=== PATIENT | female | born 1955 | race Caucasian/White ===

== ENCOUNTER 2018-05-25 16:52 | Observation (INO) ==
[2018-05-25] MEDS ORDERED: *HR* FentaNYL (PF) 100 MCG/2 ML VIAL IVP ONE (17:47)
[2018-05-25] MEDS ORDERED: Isovue-370 500 ML INFUS..BTL IV ONE (17:47)
[2018-05-25] MEDS ORDERED: Ondansetron 4 MG/2 ML VIAL IVP ONE (17:47)
[2018-05-25] MEDS ORDERED: 0.9 % Sodium Chloride 1,000 ML IVC ONE (17:47)
--- NOTE | 2018-05-25 17:51 | Emergency Department Note ---
Disposition Clinical Impression: Abdominal wall cellulitis, Seroma after procedure Abdominal pain Qualifiers: Abdominal location: unspecified location Qualified Code(s): R10.9 - Unspecified abdominal pain Disposition: Admitted As Inpatient Condition: Good Referrals: Zeinab Mcgee [Primary Care Provider] - Forms: ED Satisfaction Letter, Work/School Release Time of Disposition: 20:14 Abdominal Pain HPI - General Chief Complaint: ED Abdominal Pain Stated Complaint: "hernia sx 3wks ago-fever,abd pain" Time Seen by Provider: 05/25/18 17:07 Source: patient Mode of arrival: ambulatory Limitations: no limitations Nursing Notes Reviewed: Yes Vital Signs Reviewed: Yes - History of Present Illness HPI Narrative: 62-year-old female presents emergency department with abdominal pain. 15 days ago she had an incisional hernia repaired with mesh performed by surgery here Dr. Renae. Since then she reports a lump in the hernia site with increased redness and sharp pain with discomfort. Denies radiation of the pain. Her other incisional sites appear well healing without any discharge. Today she had a temperature of 102.6. Reports normal appetite. She denies any cough, congestion, sick contacts or urinary symptoms. She is been taken a leave with minimal relief. She has been feeling nauseated but denies any vomiting. She reports normal bowel movement earlier today. She reports recently being evaluated by Dr. Renae and was told this is normal healing. Pt Subjective Complaint: abdominal pain Pain Scale: 10 - Related Data Home Medications Medication Instructions Recorded Confirmed Acetaminophen [Arthritis Pain 650 mg PO DAILY PRN 11/22/17 05/10/18 Relief] Cyanocobalamin (Vitamin B-12) 1,000 mcg SL DAILY 11/22/17 05/10/18 [Vitamin B-12] Albuterol Sulfate [Ventolin Hfa] 90 mcg IH Q6HR PRN 05/10/18 05/10/18 Vitamin D3 PO DAILY 05/10/18 Previous Rx's Medication Instructions Recorded OxyCODONE/APAP 5/325 [Percocet 1 each PO Q6HR PRN 7 Days #20 05/10/18 5/325 MG] tablet Allergies Allergy/AdvReac Type Severity Reaction Status Date / Time No Known Allergies Allergy Verified 04/22/18 13:55 All systems ED: reviewed and negative except as stated. Review of Systems: As Per HPI Constitutional: Reports: fever, chills ENT ED: Denies: congestion Cardiovascular: Denies: chest pain Respiratory: Denies: cough, dyspnea Gastrointestinal: Reports: abdominal pain, nausea. Denies: vomiting, diarrhea, melena, hematochezia Genitourinary: Denies: urgency, dysuria Integumentary: Denies: rash, abrasion Abdominal Pain PMH - Past Medical History Medical history: Reports: arthritis, asthma, cancer, COPD, diabetes, hypertension, migraine Female Surgical History: Reports: herniorrhaphy Psychiatric history: Reports: no psych history - Social History Smoking status: Never smoker Alcohol use: Reports: none Drug use: Reports: none Physical Exam - General Limitations: no limitations General appearance: alert, in no apparent distress, obese - Head Head exam: atraumatic, normocephalic, normal inspection - Eye Eye exam: Present: normal appearance, PERRL, EOMI. Absent: scleral icterus - ENT ENT exam: normal exam, normal oropharynx, mucous membranes moist - Neck Neck exam: Present: normal inspection, full ROM, trachea midline - Chest Chest inspection: Present: normal inspection, symmetric chest wall rise - Respiratory Respiratory exam: Present: normal lung sounds bilaterally. Absent: respiratory distress, wheezes - Cardiovascular Cardiovascular exam: Present: regular rate, normal rhythm, normal heart sounds - Abdominal Exam Abdominal exam: Present: soft, tenderness, normal bowel sounds, hernia ( Epigastric region with surrounding erythema and warmth), other (Well healing incisional scars to the left abdomen from robotic surgery). Absent: distention , guarding, rebound, rigidity, pulsatile mass - Extremities Exam Extremities exam: Present: normal inspection, full ROM, normal capillary refill. Absent: tenderness, pedal edema - Back Exam Back exam: Present: normal inspection, full ROM. Absent: tenderness, CVA tenderness (R), CVA tenderness (L) - Neurological Exam Neurological exam: Present: alert, oriented X3 - Psychiatric Psychiatric exam: Present: normal affect, normal mood - Skin Skin exam: Present: warm, dry, intact, normal color. Absent: rash, cyanosis, diaphoresis Course Course Narrative: Patient presents post up pain with warm to the area and tenderness in the epigastric region she has a large roughly 3 cm circumscribed lump that is tender and cannot be reproduced. There is no bowel sounds over the mass. There is some surrounding erythema and induration. At this time concerning for incarcerated hernia as well as abscess formation. Will check labs including a lactate and obtain a CT with IV contrast. Medications for symptom control patient is in agreement with this plan. - Reevaluation(s) Reevaluation #1: Abdomen is otherwise benign but tender only in the isolated area. She has a leukocytosis of 19 with neutrophil he a. Lactate is 1.2. Urinalysis is not consistent with infection. She denies any respiratory complaints. Suspect likely the source of her fever today is from this abdominal wall source. CT scan shows to well circumscribed fluid collections with the superificial one with air and concern for abscess. Will consult with surgery. Will initiate antibiotic treatment Zosyn and Vanc - Consultations Consultation #1: Discuss the case and consultation with on-call surgeon Dr. Lane, states is not uncommon for seroma to form as well as collect air and typically will take longer time to resolve. He would not recommend any incision or drainage and agrees with observation admission and antibiotics. Time: 20:08 Vital Signs Temperature 97.5 F L 05/25/18 16:59 Pulse Rate 94 05/25/18 16:59 Respiratory Rate 16 05/25/18 16:59 Blood Pressure 129/80 05/25/18 16:59 O2 Sat by Pulse Oximetry 96 05/25/18 16:59 Temperature 97.5 F L 05/25/18 16:59 Pulse Rate 94 05/25/18 16:59 Respiratory Rate 16 05/25/18 16:59 Blood Pressure 129/80 05/25/18 16:59 O2 Sat by Pulse Oximetry 96 05/25/18 16:59 Oxygen Delivery Oxygen Delivery Room Air Abdominal Pain - MDM Narrative Medical decision making narrative: Patient was discussed with my attending physician who agrees with ED management and final disposition. They independently evaluated the patient. Please refer to their attestation to this encounter for additional information. This note was generated by [employer] voice recognition software and as a result grammatical or spelling errors may occur using this program. - Medical Records Medical records reviewed: Yes I reviewed the patient's medical records. - Lab Data Lab results reviewed: Yes I reviewed the patient's lab results. Result diagrams: 05/25/18 18:02 05/25/18 18:02 Lab Results 05/25/18 05/25/18 05/25/18 Range/Units 18:02 18:02 18:02 WBC 19.5 H (4.3-11.1) K/mcL RBC 3.72 L (3.82-4.97) M/mcL Hgb 11.6 (11.5-15.4) g/dL Hct 34.5 L (35.3-44.9) % MCV 92.7 (83.0-100.0) fL MCH 31.2 (28.0-33.3) pg MCHC 33.6 (31.6-35.5) g/dL RDW 13.8 (11.5-14.5) % Plt Count 537 H (140-400) K/mcL MPV 9.8 (9.4-12.4) fL Immature Gran % 0.5 (0-4) % Seg Neutrophils % 78.9 % Lymphocytes % 12.9 % Monocytes % 6.7 % Eosinophils % 0.6 % Basophils % 0.4 % Neutrophils # 15.4 H (1.6-8.9) K/mcL Lymphocytes # 2.5 (0.6-4.6) K/mcL Monocytes # 1.3 (0.0-1.3) K/mcL Eosinophils # 0.1 (0.0-0.6) K/mcL Basophils # 0.1 (0.0-0.2) K/mcL Sodium 137 (136-145) mEq/L Potassium 3.8 (3.5-5.1) mEq/L Chloride 100 (98-107) mEq/L Carbon Dioxide 31 H (23-29) mEq/L BUN 13 (8-23) mg/dL Creatinine 0.68 (0.60-1.20) mg/dL Est GFR ( Amer) > 60 (> 60) Est GFR (Non-Af Amer) > 60 (> 60) BUN/Creatinine Ratio 19 (6-26) Glucose 123 H (70-105) mg/dL Calculated Osmolality 285 (280-300) Lactic Acid 1.2 (0.5-2.2) mmol/L Calcium 9.4 (8.6-10.3) mg/dL Total Bilirubin 0.4 (0.3-1.0) mg/dL Direct Bilirubin 0.0 (0.0-0.2) mg/dL Indirect Bilirubin 0.4 (0.0-1.2) mg/dL AST 9 L (13-39) Units/L ALT 7 (7-52) Units/L Alkaline Phosphatase 73 (34-104) Units/L Serum Total Protein 7.4 (6.4-8.9) g/dL Albumin 3.8 (3.5-5.7) g/dL Globulin 3.6 H (2.4-3.5) g/dL Albumin/Globulin Ratio 1.1 (1.1-2.2) Lipase 21 (11-82) Units/L Urine Color (Yellow) Urine Clarity (Clear) Urine pH (5.0-8.0) pH Units Ur Specific [place] (1.010-1.025) Urine Protein (Neg-Trace) mg/dL Urine Glucose (UA) (Normal) mg/dL Urine Ketones (Negative) mg/dL Urine Blood (Negative) Urine Nitrite (Negative) Urine Bilirubin (Negative) Urine Urobilinogen (Normal) mg/dL Ur Leukocyte Esterase (Negative) Urine Microscopic RBC (0-3) per hpf Urine Microscopic WBC (0-3) per hpf Ur Squamous Epith Cells (None-Few) per lpf Urine Bacteria (None-Few) per hpf Hyaline Casts (None-Few) per lpf Ur Culture Indicated? (NO) 05/25/18 Range/Units 18:25 WBC (4.3-11.1) K/mcL RBC (3.82-4.97) M/mcL Hgb (11.5-15.4) g/dL Hct (35.3-44.9) % MCV (83.0-100.0) fL MCH (28.0-33.3) pg MCHC (31.6-35.5) g/dL RDW (11.5-14.5) % Plt Count (140-400) K/mcL MPV (9.4-12.4) fL Immature Gran % (0-4) % Seg Neutrophils % % Lymphocytes % % Monocytes % % Eosinophils % % Basophils % % Neutrophils # (1.6-8.9) K/mcL Lymphocytes # (0.6-4.6) K/mcL Monocytes # (0.0-1.3) K/mcL Eosinophils # (0.0-0.6) K/mcL Basophils # (0.0-0.2) K/mcL Sodium (136-145) mEq/L Potassium (3.5-5.1) mEq/L Chloride (98-107) mEq/L Carbon Dioxide (23-29) mEq/L BUN (8-23) mg/dL Creatinine (0.60-1.20) mg/dL Est GFR ( Amer) (> 60) Est GFR (Non-Af Amer) (> 60) BUN/Creatinine Ratio (6-26) Glucose (70-105) mg/dL Calculated Osmolality (280-300) Lactic Acid (0.5-2.2) mmol/L Calcium (8.6-10.3) mg/dL Total Bilirubin (0.3-1.0) mg/dL Direct Bilirubin (0.0-0.2) mg/dL Indirect Bilirubin (0.0-1.2) mg/dL AST (13-39) Units/L ALT (7-52) Units/L Alkaline Phosphatase (34-104) Units/L Serum Total Protein (6.4-8.9) g/dL Albumin (3.5-5.7) g/dL Globulin (2.4-3.5) g/dL Albumin/Globulin Ratio (1.1-2.2) Lipase (11-82) Units/L Urine Color Yellow (Yellow) Urine Clarity Clear (Clear) Urine pH 7.5 (5.0-8.0) pH Units Ur Specific [place] 1.019 (1.010-1.025) Urine Protein Negative (Neg-Trace) mg/dL Urine Glucose (UA) Normal (Normal) mg/dL Urine Ketones Negative (Negative) mg/dL Urine Blood Negative (Negative) Urine Nitrite Negative (Negative) Urine Bilirubin Negative (Negative) Urine Urobilinogen Normal (Normal) mg/dL Ur Leukocyte Esterase Small H (Negative) Urine Microscopic RBC 5-15 H (0-3) per hpf Urine Microscopic WBC 0-3 (0-3) per hpf Ur Squamous Epith Cells Many H (None-Few) per lpf Urine Bacteria None Seen (None-Few) per hpf Hyaline Casts None Seen (None-Few) per lpf Ur Culture Indicated? NO. A (NO) - Radiology Data Radiology results reviewed: Yes I reviewed the patient's radiology results. Abdomen/Pelvis CT 05/25/18 17:47 IMPRESSION: 1. Well-circumscribed intra-abdominal fluid collection along the superior midline which abuts the anterior abdominal wall measuring 4.4 x 8.2 x 7.2 cm. The collection extends to involve the left hepatic lobe. Findings highly suspicious for intra-abdominal abscess. Please note sterility of fluid is indeterminate on imaging. 2. Circumscribed fluid collection containing multiple locules of gas along the subcutaneous fat of the anterior abdominal wall just superficial to the intra-abdominal collection. There is surrounding subcutaneous stranding. Findings most suggestive of abscess with adjacent cellulitis. This collection measures 3.8 x 5.0 x 6.7 cm. 3. Postsurgical changes of ventral hernia repair. D/ / Calvin Smiley MD / Calvin Smiley MD Interpreting Provider: Calvin Smiley MD Attestation Statement - Attestation Attestation: I, Billy Kiran DO, examined this patient [id number] and my medical decision-making was reviewed with Dr. Vic Zacarias , Resident Physician. I agree with the documented findings, disposition and treatment plan as described except to the extent set forth below. Please see my progress notes for details.
[2018-05-25 18:17] LABS: Basophils # 0.1 K/mcL (0.0-0.2); Basophils % 0.4 %; Eosinophils # 0.1 K/mcL (0.0-0.6); Eosinophils % 0.6 %; Hematocrit 34.5 % (35.3-44.9); Hemoglobin 11.6 g/dL (11.5-15.4); Immature Granulocytes % 0.5 % (0-4); Lymphocytes # 2.5 K/mcL (0.6-4.6); Lymphocytes % 12.9 %; Mean Corpuscular HGB Conc 33.6 g/dL (31.6-35.5); Mean Corpuscular Hemoglobin 31.2 pg (28.0-33.3); Mean Corpuscular Volume 92.7 fL (83.0-100.0); Mean Platelet Volume 9.8 fL (9.4-12.4); Monocytes # 1.3 K/mcL (0.0-1.3); Monocytes % 6.7 %; Neutrophils # 15.4 K/mcL (1.6-8.9); Platelet Count 537 K/mcL (140-400); Red Blood Count 3.72 M/mcL (3.82-4.97); Red Cell Distribution Width 13.8 % (11.5-14.5); Segmented Neutrophils % 78.9 %
[2018-05-25 18:34] LABS: Alanine Aminotransferase 7 Units/L (7-52); Albumin 3.8 g/dL (3.5-5.7); Albumin/Globulin Ratio 1.1 (1.1-2.2); Alkaline Phosphatase 73 Units/L (34-104); Aspartate Amino Transferase 9 Units/L (13-39); BUN/Creatinine Ratio 19 (6-26); Bilirubin,Indirect 0.4 mg/dL (0.0-1.2); Bilirubin,Total 0.4 mg/dL (0.3-1.0); Blood Urea Nitrogen 13 mg/dL (8-23); Calcium 9.4 mg/dL (8.6-10.3); Carbon Dioxide 31 mEq/L (23-29); Chloride 100 mEq/L (98-107); Globulin 3.6 g/dL (2.4-3.5); Glucose 123 mg/dL (70-105); Lipase 21 Units/L (11-82); Osmolality,Calculated 285 (280-300); Potassium 3.8 mEq/L (3.5-5.1); Sodium 137 mEq/L (136-145); Total Protein 7.4 g/dL (6.4-8.9); eGFR For Non-African Americans > 60 (> 60)
[2018-05-25 18:41] LABS: Bilirubin,Urine Negative (Negative); Blood,Urine Negative (Negative); Clarity,Urine Clear (Clear); Color,Urine Yellow (Yellow); Glucose,Urine (UA) Normal (Normal); Ketones,Urine Negative (Negative); Leukocyte Esterase,Urine Small (Negative); Nitrite,Urine Negative (Negative); PH,Urine 7.5 pH Units (5.0-8.0); Protein,Urine Negative (Neg-Trace); Specific Gravity,Urine 1.019 (1.010-1.025); Urobilinogen,Urine Normal (Normal)
[2018-05-25 18:42] LABS: Bacteria,Urine None Seen per hpf (None-Few); Hyaline Casts,Urine None Seen per lpf (None-Few); Squamous Epithelial Cell,Urine Many per lpf (None-Few); WBC,Urine 0-3 per hpf (0-3)
--- NOTE | 2018-05-25 18:46 | Emergency Department Note ---
Disposition Clinical Impression: Abdominal wall cellulitis, Seroma after procedure Disposition: Admitted As Inpatient Condition: Good Referrals: Zeinab Mcgee [Primary Care Provider] - Forms: ED Satisfaction Letter, Work/School Release Time of Disposition: 20:09 General Adult HPI - General Chief complaint: ED Abdominal Pain Stated complaint: "hernia sx 3wks ago-fever,abd pain" Time Seen by Provider: 05/25/18 17:07 Source: patient Mode of arrival: ambulatory Limitations: no limitations - History of Present Illness Pain Scale: 10 - Related Data Home Medications Medication Instructions Recorded Confirmed Acetaminophen [Arthritis Pain 650 mg PO DAILY PRN 11/22/17 05/10/18 Relief] Cyanocobalamin (Vitamin B-12) 1,000 mcg SL DAILY 11/22/17 05/10/18 [Vitamin B-12] Albuterol Sulfate [Ventolin Hfa] 90 mcg IH Q6HR PRN 05/10/18 05/10/18 Vitamin D3 PO DAILY 05/10/18 Previous Rx's Medication Instructions Recorded OxyCODONE/APAP 5/325 [Percocet 1 each PO Q6HR PRN 7 Days #20 05/10/18 5/325 MG] tablet Allergies Allergy/AdvReac Type Severity Reaction Status Date / Time No Known Allergies Allergy Verified 04/22/18 13:55 Constitutional: Reports: fever, chills ENT ED: Denies: congestion Cardiovascular: Denies: chest pain Respiratory: Denies: cough, dyspnea Gastrointestinal: Reports: abdominal pain, nausea. Denies: vomiting, diarrhea, melena, hematochezia Genitourinary: Denies: urgency, dysuria Integumentary: Denies: rash, abrasion Past Medical History - Past Medical History Medical history: Reports: arthritis, asthma, cancer, COPD, diabetes, hypertension, migraine Surgical history: Reports: cholecystectomy, herniorrhaphy, bariatric surgery Psychiatric history: Reports: no psych history - Social History Smoking Status: Never smoker Smokeless Tobacco Status: No Alcohol use: Reports: none Drug use: Reports: none Physical Exam - General Limitations: no limitations General appearance: alert, in no apparent distress, obese Course Vital Signs Temperature 97.5 F L 05/25/18 16:59 Pulse Rate 94 05/25/18 16:59 Respiratory Rate 16 05/25/18 16:59 Blood Pressure 129/80 05/25/18 16:59 O2 Sat by Pulse Oximetry 96 05/25/18 16:59 Temperature 97.5 F L 05/25/18 16:59 Pulse Rate 94 05/25/18 16:59 Respiratory Rate 16 05/25/18 16:59 Blood Pressure 129/80 05/25/18 16:59 O2 Sat by Pulse Oximetry 96 05/25/18 16:59 Oxygen Delivery Oxygen Delivery Room Air Medical Decision Making - Lab Data Result diagrams: 05/25/18 18:02 05/25/18 18:02 Lab Results 05/25/18 05/25/18 05/25/18 Range/Units 18:02 18:02 18:02 WBC 19.5 H (4.3-11.1) K/mcL RBC 3.72 L (3.82-4.97) M/mcL Hgb 11.6 (11.5-15.4) g/dL Hct 34.5 L (35.3-44.9) % MCV 92.7 (83.0-100.0) fL MCH 31.2 (28.0-33.3) pg MCHC 33.6 (31.6-35.5) g/dL RDW 13.8 (11.5-14.5) % Plt Count 537 H (140-400) K/mcL MPV 9.8 (9.4-12.4) fL Immature Gran % 0.5 (0-4) % Seg Neutrophils % 78.9 % Lymphocytes % 12.9 % Monocytes % 6.7 % Eosinophils % 0.6 % Basophils % 0.4 % Neutrophils # 15.4 H (1.6-8.9) K/mcL Lymphocytes # 2.5 (0.6-4.6) K/mcL Monocytes # 1.3 (0.0-1.3) K/mcL Eosinophils # 0.1 (0.0-0.6) K/mcL Basophils # 0.1 (0.0-0.2) K/mcL Sodium 137 (136-145) mEq/L Potassium 3.8 (3.5-5.1) mEq/L Chloride 100 (98-107) mEq/L Carbon Dioxide 31 H (23-29) mEq/L BUN 13 (8-23) mg/dL Creatinine 0.68 (0.60-1.20) mg/dL Est GFR ( Amer) > 60 (> 60) Est GFR (Non-Af Amer) > 60 (> 60) BUN/Creatinine Ratio 19 (6-26) Glucose 123 H (70-105) mg/dL Calculated Osmolality 285 (280-300) Lactic Acid 1.2 (0.5-2.2) mmol/L Calcium 9.4 (8.6-10.3) mg/dL Total Bilirubin 0.4 (0.3-1.0) mg/dL Direct Bilirubin 0.0 (0.0-0.2) mg/dL Indirect Bilirubin 0.4 (0.0-1.2) mg/dL AST 9 L (13-39) Units/L ALT 7 (7-52) Units/L Alkaline Phosphatase 73 (34-104) Units/L Serum Total Protein 7.4 (6.4-8.9) g/dL Albumin 3.8 (3.5-5.7) g/dL Globulin 3.6 H (2.4-3.5) g/dL Albumin/Globulin Ratio 1.1 (1.1-2.2) Lipase 21 (11-82) Units/L Urine Color (Yellow) Urine Clarity (Clear) Urine pH (5.0-8.0) pH Units Ur Specific [place] (1.010-1.025) Urine Protein (Neg-Trace) mg/dL Urine Glucose (UA) (Normal) mg/dL Urine Ketones (Negative) mg/dL Urine Blood (Negative) Urine Nitrite (Negative) Urine Bilirubin (Negative) Urine Urobilinogen (Normal) mg/dL Ur Leukocyte Esterase (Negative) Urine Microscopic RBC (0-3) per hpf Urine Microscopic WBC (0-3) per hpf Ur Squamous Epith Cells (None-Few) per lpf Urine Bacteria (None-Few) per hpf Hyaline Casts (None-Few) per lpf Ur Culture Indicated? (NO) 05/25/18 Range/Units 18:25 WBC (4.3-11.1) K/mcL RBC (3.82-4.97) M/mcL Hgb (11.5-15.4) g/dL Hct (35.3-44.9) % MCV (83.0-100.0) fL MCH (28.0-33.3) pg MCHC (31.6-35.5) g/dL RDW (11.5-14.5) % Plt Count (140-400) K/mcL MPV (9.4-12.4) fL Immature Gran % (0-4) % Seg Neutrophils % % Lymphocytes % % Monocytes % % Eosinophils % % Basophils % % Neutrophils # (1.6-8.9) K/mcL Lymphocytes # (0.6-4.6) K/mcL Monocytes # (0.0-1.3) K/mcL Eosinophils # (0.0-0.6) K/mcL Basophils # (0.0-0.2) K/mcL Sodium (136-145) mEq/L Potassium (3.5-5.1) mEq/L Chloride (98-107) mEq/L Carbon Dioxide (23-29) mEq/L BUN (8-23) mg/dL Creatinine (0.60-1.20) mg/dL Est GFR ( Amer) (> 60) Est GFR (Non-Af Amer) (> 60) BUN/Creatinine Ratio (6-26) Glucose (70-105) mg/dL Calculated Osmolality (280-300) Lactic Acid (0.5-2.2) mmol/L Calcium (8.6-10.3) mg/dL Total Bilirubin (0.3-1.0) mg/dL Direct Bilirubin (0.0-0.2) mg/dL Indirect Bilirubin (0.0-1.2) mg/dL AST (13-39) Units/L ALT (7-52) Units/L Alkaline Phosphatase (34-104) Units/L Serum Total Protein (6.4-8.9) g/dL Albumin (3.5-5.7) g/dL Globulin (2.4-3.5) g/dL Albumin/Globulin Ratio (1.1-2.2) Lipase (11-82) Units/L Urine Color Yellow (Yellow) Urine Clarity Clear (Clear) Urine pH 7.5 (5.0-8.0) pH Units Ur Specific [place] 1.019 (1.010-1.025) Urine Protein Negative (Neg-Trace) mg/dL Urine Glucose (UA) Normal (Normal) mg/dL Urine Ketones Negative (Negative) mg/dL Urine Blood Negative (Negative) Urine Nitrite Negative (Negative) Urine Bilirubin Negative (Negative) Urine Urobilinogen Normal (Normal) mg/dL Ur Leukocyte Esterase Small H (Negative) Urine Microscopic RBC 5-15 H (0-3) per hpf Urine Microscopic WBC 0-3 (0-3) per hpf Ur Squamous Epith Cells Many H (None-Few) per lpf Urine Bacteria None Seen (None-Few) per hpf Hyaline Casts None Seen (None-Few) per lpf Ur Culture Indicated? NO. A (NO) Attestation Statement - Attestation Attestation: I, Billy Kiran DO, examined this patient [id number] and my medical decision-making was reviewed with Dr. Vic Zacarias , Resident Physician. I agree with the documented findings, disposition and treatment plan as described except to the extent set forth below. Please see my progress notes for details. 62-year-old female presents emergency room for evaluation of surgical hernia repair discomfort and pain. Patient had surgical repair by robotic procedure completed approximately 3 weeks ago. She has had a persistent swelling to the anterior aspect of the abdomen that is progressively got larger and has more redness and warmth to it at this time. Patient denies chest pain shortness of breath headache vision changes nausea vomiting or diarrhea. She has had fevers up to 102 at home. She has been making normal bowel movements and having normal phlebitis. She has no other complaints or issues at this time. Vital signs in triage were stable. Patient's blood pressure and temperature were normal. Patient is alert she is oriented she speaks in full sentences she is short of breath her lungs are clear heart is regular abdomen is soft but she does have what appears to be redness and distention of this midline surgical incision site. There does appear to be laxity. She does have significant tenderness with palpation of that area. Bowel sounds are present otherwise. There is no guarding rigidity or peritoneal-like symptoms on exam. Concern is noted for possible breakdown of the surgical incision site, loss of integrity of the mass, infected or inflammatory seroma causing the discomfort and issues. Pain medication fluids nausea medication will be given. CBC chemistry troponin as well as lipase and liver function testing and lactic acid along with blood cultures will be drawn at this time. CT with IV contrast to be completed. Urinalysis will be collected. Patient otherwise clinical stable despite the presenting issue as well as recent surgery the patient is concerning for infectious etiology. See detailed documentation of physical exam , medical intervention, medical decision-making and disposition in the resident physician's note. No critical care pad the patient's treatment course at this time 2000 Patient is an elevated white blood cell count as well as neutrophilia. Patient has what appears to be a large seroma that goes to the abdominal wall into the peritoneum at this time. The imaging does show stranding and inflammation around the seroma itself. Consultations placed onto the on-call surgeon Dr. Socrates manriquez. Review the imaging modality as well as the patient's fever and elevated white blood cell count were discussed. He recommended admission with Ancef being provided. Blood cultures regarding ordered. Patient does not meet SIRS criteria and does not have what appears to be sepsis. She will be treated here in the emergency room. She did not require fluid resuscitation. Patient otherwise clinically stable admission process will be completed the surgical team for observation and resolution symptoms.
[2018-05-25] MEDS ORDERED: Piperacillin/Tazobactam 3.375 GM in 0.9 % Sodium Chloride Mini Bag 100 ML IVPB ONE (19:37)
[2018-05-25] MEDS ORDERED: ceFAZolin 1,000 MG in Water for inj. (sterile) 20 ML 10 ML IVP ONE (20:06)
[2018-05-25] MEDS ORDERED: Ondansetron ODT 4 MG TAB.RAPDIS SL PRN (22:08)
[2018-05-25] MEDS ORDERED: Ondansetron 4 MG/2 ML VIAL IVP PRN (22:08)
[2018-05-25] MEDS: *HR* OxyCODONE/APAP 7.5/325 TABLET PO PRN (22:54)
[2018-05-25] MEDS: 0.9 % Sodium Chloride 1,000 ML IVC SCH (22:54)
[2018-05-26] MEDS: ceFAZolin 1,000 MG in Water for inj. (sterile) 20 ML 10 ML IVP SCH ×4 (00:10→23:48)
[2018-05-26 07:34] LABS: Basophils % 0.2 %; Eosinophils # 0.2 K/mcL (0.0-0.6); Eosinophils % 1.2 %; Hematocrit 31.9 % (35.3-44.9); Hemoglobin 10.4 g/dL (11.5-15.4); Immature Granulocytes % 0.5 % (0-4); Lymphocytes # 2.4 K/mcL (0.6-4.6); Lymphocytes % 14.6 %; Mean Corpuscular HGB Conc 32.6 g/dL (31.6-35.5); Mean Corpuscular Hemoglobin 30.7 pg (28.0-33.3); Mean Corpuscular Volume 94.1 fL (83.0-100.0); Mean Platelet Volume 9.7 fL (9.4-12.4); Monocytes # 1.1 K/mcL (0.0-1.3); Monocytes % 6.6 %; Neutrophils # 12.5 K/mcL (1.6-8.9); Platelet Count 476 K/mcL (140-400); Red Blood Count 3.39 M/mcL (3.82-4.97); Red Cell Distribution Width 13.8 % (11.5-14.5); Segmented Neutrophils % 76.9 %
[2018-05-26 07:51] LABS: BUN/Creatinine Ratio 18 (6-26); Blood Urea Nitrogen 11 mg/dL (8-23); Calcium 8.8 mg/dL (8.6-10.3); Carbon Dioxide 26 mEq/L (23-29); Chloride 105 mEq/L (98-107); Glucose 109 mg/dL (70-105); Osmolality,Calculated 286 (280-300); Sodium 138 mEq/L (136-145); eGFR For Non-African Americans > 60 (> 60)
[2018-05-26] MEDS: 0.9 % Sodium Chloride 1,000 ML IVC SCH ×2 (12:14→23:51)
--- NOTE | 2018-05-26 12:40 | General Surg History&Physical ---
<Jaskaran Shetty T - Last Filed: 05/27/18 08:17> Date of Encounter: 05/27/18 Time of Encounter: 09:00 Assessment and Plan (1) Abdominal wall cellulitis Current Visit: Yes Status: Acute There is no surgical indication at this time. Continue antibiotic regimen Continue monitoring white blood cell count with serial CMP History of Present Illness Chief complaint: Abdominal swelling HPI: Ms. Addison is a 62 year old female presented with swelling of abdomen accompanied with pain, redness, and warmth. She had a robotic hernia repair [address] Renae. She started noticing the swelling at her follow-up appointment with at the outpatient clinic however it was not as severe red or painful. She decided to go to the emergency room department yesterday at 2 PM because she spiked a fever of 102 degrees Fahrenheit and had a painful abdomen region 8 out of 10 in severity. The pain is worsened by movement. Patient reports that since being admitted yesterday the inflammation and size of the swelling has gone down. She reports that the pain is less than on pain medication, rated a 3 out of 10. She has had a full breakfast today and is tolerating full diet well. She does not complain of nausea or vomiting. She is passing gas and had a bowel movement yesterday morning. Her white blood cell count was elevated yesterday at 19 and today it is decreased at 16 on antibiotics. Past Med Surg Social Fam HX - Past Medical History Medical history: arthritis, asthma, cancer, COPD, diabetes, hypertension, migraine Additional medical history: sleep apnea, skin cancer Psychiatric history: no psych history - Past Surgical History Surgical History: cholecystectomy, herniorrhaphy, bariatric surgery Additional surgical history: tonsils,dental - Social History Smoking Status: Never smoker Smokeless Tobacco Status: No Alcohol use: none Drug use: none Medications and Allergies Acetaminophen [Tylenol] 650 mg PO DAILY PRN 05/26/18 [History] Albuterol Sulfate [Ventolin Hfa] 1 - 2 puff IH DAILY PRN 05/26/18 [History] L.acidoph,Paracasei, B.lactis [Probiotic] 1 cap PO DAILY 05/26/18 [History] Naproxen Sodium [Aleve] 220 mg PO DAILY PRN 05/26/18 [History] Vitamin B Complex [B Complex] 1 cap PO DAILY 05/26/18 [History] 3 Allergy/AdvReac Type Severity Reaction Status Date / Time No Known Allergies Allergy Verified 05/26/18 13:29 Review of Systems All systems PM: The remainder of the systems were reviewed and are negative - Constitutional as per HPI - Gastrointestinal as per HPI General Surgery Exam Initial Vital Signs Temp Pulse Resp BP Pulse Ox 97.5 F L 94 16 129/80 96 05/25/18 16:59 05/25/18 16:59 05/25/18 16:59 05/25/18 16:59 05/25/18 16:59 - General physical appearance well developed, well nourished, no distress - Respiratory normal expansion, normal respiratory effort - Cardiovascular Cardiovascular exam: Present: RRR - Abdomen Abdomen general surgery: Present: bowel sounds present, soft Abdominal Tenderness: Present: epigastic (at site of swelling. Redness also noted) - Incision Incision: Present: clean and dry, intact - Neurologic Present: CN 2-12 grossly intact - Psychiatric Psychiatric general surgery: Present: A&Ox3, appropriate, oriented to person, oriented to place, oriented to time, speech is normal, memory intact Results - Labs 05/27/18 07:11 05/27/18 07:11 Abnormal lab results WBC 16.3 K/mcL (4.3-11.1) H 05/26/18 07:12 RBC 3.39 M/mcL (3.82-4.97) L 05/26/18 07:12 Hgb 10.4 g/dL (11.5-15.4) L 05/26/18 07:12 Hct 31.9 % (35.3-44.9) L 05/26/18 07:12 Plt Count 476 K/mcL (140-400) H 05/26/18 07:12 Neutrophils # 12.5 K/mcL (1.6-8.9) H 05/26/18 07:12 Glucose 109 mg/dL (70-105) H 05/26/18 07:12 AST 9 Units/L (13-39) L 05/25/18 18:02 Globulin 3.6 g/dL (2.4-3.5) H 05/25/18 18:02 Ur Leukocyte Esterase Small (Negative) H 05/25/18 18:25 Urine Microscopic RBC 5-15 per hpf (0-3) H 05/25/18 18:25 Ur Squamous Epith Cells Many per lpf (None-Few) H 05/25/18 18:25 Ur Culture Indicated? NO. (NO) A 05/25/18 18:25 Diabetes panel 05/26/18 Range/Units 07:12 Sodium 138 (136-145) mEq/L Potassium 4.0 (3.5-5.1) mEq/L Chloride 105 (98-107) mEq/L Carbon Dioxide 26 (23-29) mEq/L BUN 11 (8-23) mg/dL Creatinine 0.61 (0.60-1.20) mg/dL Glucose 109 H (70-105) mg/dL Calcium 8.8 (8.6-10.3) mg/dL Calcium panel 05/26/18 Range/Units 07:12 Calcium 8.8 (8.6-10.3) mg/dL Pituitary panel 05/26/18 Range/Units 07:12 Sodium 138 (136-145) mEq/L Potassium 4.0 (3.5-5.1) mEq/L Chloride 105 (98-107) mEq/L Carbon Dioxide 26 (23-29) mEq/L BUN 11 (8-23) mg/dL Creatinine 0.61 (0.60-1.20) mg/dL Glucose 109 H (70-105) mg/dL Calcium 8.8 (8.6-10.3) mg/dL Adrenal panel 05/26/18 Range/Units 07:12 Sodium 138 (136-145) mEq/L Potassium 4.0 (3.5-5.1) mEq/L Chloride 105 (98-107) mEq/L Carbon Dioxide 26 (23-29) mEq/L BUN 11 (8-23) mg/dL Creatinine 0.61 (0.60-1.20) mg/dL Glucose 109 H (70-105) mg/dL Calcium 8.8 (8.6-10.3) mg/dL All other labs normal. <Griffin Lane - Last Filed: 05/27/18 14:31> Date of Encounter: 05/27/18 History of Present Illness HPI: Ms. Addison is a 62 year old female Review of Systems All systems PM: The remainder of the systems were reviewed and are negative General Surgery Exam Initial Vital Signs Temp Pulse Resp BP Pulse Ox 97.5 F L 94 16 129/80 96 07/21/18 16:59 05/25/18 16:59 05/25/18 16:59 05/25/18 16:59 05/25/18 16:59 Results - Labs 05/27/18 07:11 05/27/18 07:11 Abnormal lab results WBC 16.3 K/mcL (4.3-11.1) H 05/27/18 07:11 RBC 3.24 M/mcL (3.82-4.97) L 05/27/18 07:11 Hgb 9.7 g/dL (11.5-15.4) L 05/27/18 07:11 Hct 29.9 % (35.3-44.9) L 05/27/18 07:11 Plt Count 476 K/mcL (140-400) H 05/27/18 07:11 Neutrophils # 12.6 K/mcL (1.6-8.9) H 05/27/18 07:11 Sodium 132 mEq/L (136-145) L 05/27/18 07:11 Creatinine 0.52 mg/dL (0.60-1.20) L 05/27/18 07:11 Glucose 109 mg/dL (70-105) H 05/27/18 07:11 Calculated Osmolality 273 (280-300) L 05/27/18 07:11 AST 7 Units/L (13-39) L 05/27/18 07:11 ALT 4 Units/L (7-52) L 05/27/18 07:11 Serum Total Protein 6.2 g/dL (6.4-8.9) L 05/27/18 07:11 Albumin 3.1 g/dL (3.5-5.7) L 05/27/18 07:11 Albumin/Globulin Ratio 1.0 (1.1-2.2) L 05/27/18 07:11 Ur Leukocyte Esterase Small (Negative) H 05/25/18 18:25 Urine Microscopic RBC 5-15 per hpf (0-3) H 05/25/18 18:25 Ur Squamous Epith Cells Many per lpf (None-Few) H 05/25/18 18:25 Ur Culture Indicated? NO. (NO) A 05/25/18 18:25 Diabetes panel 05/27/18 Range/Units 07:11 Sodium 132 L (136-145) mEq/L Potassium 3.9 (3.5-5.1) mEq/L Chloride 105 (98-107) mEq/L Carbon Dioxide 26 (23-29) mEq/L BUN 8 (8-23) mg/dL Creatinine 0.52 L (0.60-1.20) mg/dL Glucose 109 H (70-105) mg/dL Calcium 8.6 (8.6-10.3) mg/dL AST 7 L (13-39) Units/L ALT 4 L (7-52) Units/L Alkaline Phosphatase 61 (34-104) Units/L Albumin 3.1 L (3.5-5.7) g/dL Calcium panel 05/27/18 Range/Units 07:11 Calcium 8.6 (8.6-10.3) mg/dL Albumin 3.1 L (3.5-5.7) g/dL Pituitary panel 05/27/18 Range/Units 07:11 Sodium 132 L (136-145) mEq/L Potassium 3.9 (3.5-5.1) mEq/L Chloride 105 (98-107) mEq/L Carbon Dioxide 26 (23-29) mEq/L BUN 8 (8-23) mg/dL Creatinine 0.52 L (0.60-1.20) mg/dL Glucose 109 H (70-105) mg/dL Calcium 8.6 (8.6-10.3) mg/dL Adrenal panel 05/27/18 Range/Units 07:11 Sodium 132 L (136-145) mEq/L Potassium 3.9 (3.5-5.1) mEq/L Chloride 105 (98-107) mEq/L Carbon Dioxide 26 (23-29) mEq/L BUN 8 (8-23) mg/dL Creatinine 0.52 L (0.60-1.20) mg/dL Glucose 109 H (70-105) mg/dL Calcium 8.6 (8.6-10.3) mg/dL Total Bilirubin 0.3 (0.3-1.0) mg/dL AST 7 L (13-39) Units/L ALT 4 L (7-52) Units/L Alkaline Phosphatase 61 (34-104) Units/L Albumin 3.1 L (3.5-5.7) g/dL All other labs normal. - Attending Attestation I examined this patient and my medical decision-making was reviewed with the Resident Physician. I agree with the documented findings, disposition and treatment plan as described except to the extent set forth below. The patient is seen and evaluated on morning rounds with the resident. She is feeling much better. Her white blood cell count is coming down. The area of erythema on the anterior abdominal wall is less. I am still not convinced that this represents infection. This may represent fluid under tension in the previous hernia sac. We will continue conservative measures and treatment with antibiotics. Griffin Lane MD FACS
[2018-05-26] MEDS: *HR* OxyCODONE/APAP 7.5/325 TABLET PO PRN (20:06)
[2018-05-27 07:43] LABS: Basophils # 0.1 K/mcL (0.0-0.2); Basophils % 0.4 %; Eosinophils # 0.3 K/mcL (0.0-0.6); Eosinophils % 1.7 %; Hematocrit 29.9 % (35.3-44.9); Hemoglobin 9.7 g/dL (11.5-15.4); Immature Granulocytes % 0.4 % (0-4); Lymphocytes # 2.1 K/mcL (0.6-4.6); Lymphocytes % 13.2 %; Mean Corpuscular HGB Conc 32.4 g/dL (31.6-35.5); Mean Corpuscular Hemoglobin 29.9 pg (28.0-33.3); Mean Corpuscular Volume 92.3 fL (83.0-100.0); Mean Platelet Volume 10.3 fL (9.4-12.4); Monocytes # 1.1 K/mcL (0.0-1.3); Monocytes % 6.6 %; Neutrophils # 12.6 K/mcL (1.6-8.9); Platelet Count 476 K/mcL (140-400); Red Blood Count 3.24 M/mcL (3.82-4.97); Red Cell Distribution Width 13.7 % (11.5-14.5); Segmented Neutrophils % 77.7 %
[2018-05-27 08:03] LABS: Alanine Aminotransferase 4 Units/L (7-52); Albumin 3.1 g/dL (3.5-5.7); Alkaline Phosphatase 61 Units/L (34-104); Aspartate Amino Transferase 7 Units/L (13-39); BUN/Creatinine Ratio 15 (6-26); Bilirubin,Total 0.3 mg/dL (0.3-1.0); Blood Urea Nitrogen 8 mg/dL (8-23); Calcium 8.6 mg/dL (8.6-10.3); Carbon Dioxide 26 mEq/L (23-29); Chloride 105 mEq/L (98-107); Globulin 3.1 g/dL (2.4-3.5); Glucose 109 mg/dL (70-105); Osmolality,Calculated 273 (280-300); Potassium 3.9 mEq/L (3.5-5.1); Sodium 132 mEq/L (136-145); Total Protein 6.2 g/dL (6.4-8.9); eGFR For Non-African Americans > 60 (> 60)
[2018-05-27] MEDS: ceFAZolin 1,000 MG in Water for inj. (sterile) 20 ML 10 ML IVP SCH ×2 (08:34→15:32)
--- NOTE | 2018-05-27 09:37 | General Surgery Progress Note ---
<Jaskaran Shetty - Last Filed: 05/27/18 09:55> Date of Encounter: 05/27/18 Time of Encounter: 09:34 - Assessment and Plan (1) Abdominal wall cellulitis Current Visit: Yes Status: Acute Ms. Addison is a 62 year old female presented with swelling of abdomen accompanied with pain, redness, and warmth. She had a robotic hernia repair [address] Renae. There is decreased swelling, redness, and pain. WBC count remains elevated at 16.3, the same as yesterday. We will continue current measures until her swelling and redness have completely subsided - Continue ABX regimen - Ancef - Continue Zofran PRN for nausea - continue pain meds - Oxy PRN - Continue IVF and regular diet - DVT ppx started - Heparin + anti-embolic stockings Subjective Patient reports: no new complaints, feels better, still having pain, pain is less, tolerating a regular diet, flatus, bowel movement Narrative: Ms. Addison is a 62 year old female presented with swelling of abdomen accompanied with pain, redness, and warmth. She had a robotic hernia repair [address] Renae. She reports that the swellilng and redness has decreased since admission. She denies abdominal distension, N/V, and fever. She is passing gas, having bowel movements, and tolerating a full diet. WBC count remains elevated at 16.3 this AM, unchanged from yesterday, but overall decreased from Sunday at 19.5. Objective Vital Signs - Last 8 Hours Temp Pulse Resp BP Pulse Ox 05/27/18 07:43 98.2 F 82 14 116/73 93 05/27/18 03:37 99.7 F H 90 18 119/73 93 Intake and Output 05/26/18 05/27/18 05/27/18 23:59 07:59 15:59 Intake Total 1020 / 1020 360 / 360 Output Total 1300 / 1300 Balance 1020 / 1020 -940 / -940 Intake: IV Fluids 1020 / 1020 10 10 0.9 % Sodium Chloride 1,000 ML 1000 / 1000 @ 75 mls/hr IVC .[id number] [facility] Rx #:[id number] Ancef 1,000 MG In Water for inj 20 / 20 . (sterile) 10 ML @ 200 mls/hr IVP Q8HR [facility] Rx#:[id number] Oral 0 / 0 360 / 360 Output: Urine 1300 / 1300 Other: Meal Dinner Percent of Meal Consumed 0% Weight 80 kg Patient Weight 05/27/18 23:59 Weight 80 kg - General physical appearance well developed, well nourished, no distress - Cardiovascular Cardiovascular exam: Present: RRR, no murmurs/rubs/gallops - Abdomen Abdomen: Present: bowel sounds present, soft, non tender Abdominal Tenderness: epigastic (mildly tender at site of swelling with decreasing redness. Size of swelling has decreased since admission.) - Neurologic CN 2-12 grossly intact - Psychiatric oriented to time, oriented to person, oriented to place, speech is normal, memory intact - Labs 05/27/18 07:11 05/27/18 07:11 Diabetes panel 05/27/18 Range/Units 07:11 Sodium 132 L (136-145) mEq/L Potassium 3.9 (3.5-5.1) mEq/L Chloride 105 (98-107) mEq/L Carbon Dioxide 26 (23-29) mEq/L BUN 8 (8-23) mg/dL Creatinine 0.52 L (0.60-1.20) mg/dL Glucose 109 H (70-105) mg/dL Calcium 8.6 (8.6-10.3) mg/dL AST 7 L (13-39) Units/L ALT 4 L (7-52) Units/L Alkaline Phosphatase 61 (34-104) Units/L Albumin 3.1 L (3.5-5.7) g/dL Calcium panel 05/27/18 Range/Units 07:11 Calcium 8.6 (8.6-10.3) mg/dL Albumin 3.1 L (3.5-5.7) g/dL Pituitary panel 05/27/18 Range/Units 07:11 Sodium 132 L (136-145) mEq/L Potassium 3.9 (3.5-5.1) mEq/L Chloride 105 (98-107) mEq/L Carbon Dioxide 26 (23-29) mEq/L BUN 8 (8-23) mg/dL Creatinine 0.52 L (0.60-1.20) mg/dL Glucose 109 H (70-105) mg/dL Calcium 8.6 (8.6-10.3) mg/dL Adrenal panel 05/27/18 Range/Units 07:11 Sodium 132 L (136-145) mEq/L Potassium 3.9 (3.5-5.1) mEq/L Chloride 105 (98-107) mEq/L Carbon Dioxide 26 (23-29) mEq/L BUN 8 (8-23) mg/dL Creatinine 0.52 L (0.60-1.20) mg/dL Glucose 109 H (70-105) mg/dL Calcium 8.6 (8.6-10.3) mg/dL Total Bilirubin 0.3 (0.3-1.0) mg/dL AST 7 L (13-39) Units/L ALT 4 L (7-52) Units/L Alkaline Phosphatase 61 (34-104) Units/L Albumin 3.1 L (3.5-5.7) g/dL Consult Discharge Plan - Plan Referrals: Zeinab Mcgee [Primary Care Provider] - <Griffin Lane - Last Filed: 05/27/18 15:36> Date of Encounter: 05/27/18 Objective Vital Signs - Last 8 Hours Temp Pulse Resp BP Pulse Ox 05/27/18 15:00 98.4 F 77 18 109/64 96 05/27/18 11:33 98.7 F 84 16 115/75 96 05/27/18 07:43 98.2 F 82 14 116/73 93 Intake and Output 05/26/18 05/27/18 05/27/18 23:59 07:59 15:59 Intake Total 1020 / 1020 360 / 360 1370 / 1370 Output Total 1300 / 1300 400 / 400 Balance 1020 / 1020 -940 / -940 970 / 970 Intake: IV Fluids 1020 / 1020 1010 / 1010 0.9 % Sodium Chloride 1,000 ML 1000 / 1000 1000 / 1000 @ 75 mls/hr IVC .[id number] [facility] Rx #:[id number] Ancef 1,000 MG In Water for inj . (sterile) 10 ML @ 200 mls/hr IVP Q8HR [facility] Rx#:[id number] Oral 0 / 0 360 / 360 360 / 360 Output: Urine 1300 / 1300 400 / 400 Other: Meal Dinner Lunch Percent of Meal Consumed 0% 0% Weight 80 kg Patient Weight 05/27/18 23:59 Weight 80 kg - Labs 05/27/18 07:11 05/27/18 07:11 Diabetes panel 05/27/18 Range/Units 07:11 Sodium 132 L (136-145) mEq/L Potassium 3.9 (3.5-5.1) mEq/L Chloride 105 (98-107) mEq/L Carbon Dioxide 26 (23-29) mEq/L BUN 8 (8-23) mg/dL Creatinine 0.52 L (0.60-1.20) mg/dL Glucose 109 H (70-105) mg/dL Calcium 8.6 (8.6-10.3) mg/dL AST 7 L (13-39) Units/L ALT 4 L (7-52) Units/L Alkaline Phosphatase 61 (34-104) Units/L Albumin 3.1 L (3.5-5.7) g/dL Calcium panel 05/27/18 Range/Units 07:11 Calcium 8.6 (8.6-10.3) mg/dL Albumin 3.1 L (3.5-5.7) g/dL Pituitary panel 05/27/18 Range/Units 07:11 Sodium 132 L (136-145) mEq/L Potassium 3.9 (3.5-5.1) mEq/L Chloride 105 (98-107) mEq/L Carbon Dioxide 26 (23-29) mEq/L BUN 8 (8-23) mg/dL Creatinine 0.52 L (0.60-1.20) mg/dL Glucose 109 H (70-105) mg/dL Calcium 8.6 (8.6-10.3) mg/dL Adrenal panel 05/27/18 Range/Units 07:11 Sodium 132 L (136-145) mEq/L Potassium 3.9 (3.5-5.1) mEq/L Chloride 105 (98-107) mEq/L Carbon Dioxide 26 (23-29) mEq/L BUN 8 (8-23) mg/dL Creatinine 0.52 L (0.60-1.20) mg/dL Glucose 109 H (70-105) mg/dL Calcium 8.6 (8.6-10.3) mg/dL Total Bilirubin 0.3 (0.3-1.0) mg/dL AST 7 L (13-39) Units/L ALT 4 L (7-52) Units/L Alkaline Phosphatase 61 (34-104) Units/L Albumin 3.1 L (3.5-5.7) g/dL - Attending Attestation I examined this patient and my medical decision-making was reviewed with the Resident Physician. I agree with the documented findings, disposition and treatment plan as described except to the extent set forth below. The patient is seen and evaluated with the resident on morning rounds. She has much less erythema and pain. It is unclear whether this represents infection or increased pressure in the fluid in the subcutaneous space. She continues to improve clinically. Continue antibiotics. Griffin Lane MD FACS
[2018-05-27] MEDS: *HR* OxyCODONE/APAP 7.5/325 TABLET PO PRN (12:07)
[2018-05-27] MEDS: 0.9 % Sodium Chloride 1,000 ML IVC SCH (13:39)
[2018-05-27] MEDS ORDERED: *HR* HYDROcodone/Acet 5/325 mg TABLET PO PRN (15:12)
[2018-05-27] MEDS: Pantoprazole 40 MG VIAL IVP SCH (17:59)
[2018-05-27] MEDS: Ibuprofen 600 MG TABLET PO PRN (19:33)
[2018-05-28] MEDS: ceFAZolin 1,000 MG in Water for inj. (sterile) 20 ML 10 ML IVP SCH ×3 (00:37→17:30)
[2018-05-28 07:32] LABS: Basophils # 0.1 K/mcL (0.0-0.2); Basophils % 0.4 %; Eosinophils # 0.4 K/mcL (0.0-0.6); Eosinophils % 2.3 %; Hematocrit 32.9 % (35.3-44.9); Hemoglobin 10.9 g/dL (11.5-15.4); Immature Granulocytes % 0.5 % (0-4); Lymphocytes # 1.8 K/mcL (0.6-4.6); Lymphocytes % 11.3 %; Mean Corpuscular HGB Conc 33.1 g/dL (31.6-35.5); Mean Corpuscular Hemoglobin 30.4 pg (28.0-33.3); Mean Corpuscular Volume 91.6 fL (83.0-100.0); Mean Platelet Volume 9.8 fL (9.4-12.4); Monocytes # 0.9 K/mcL (0.0-1.3); Monocytes % 5.9 %; Neutrophils # 12.6 K/mcL (1.6-8.9); Platelet Count 583 K/mcL (140-400); Red Blood Count 3.59 M/mcL (3.82-4.97); Red Cell Distribution Width 13.6 % (11.5-14.5); Segmented Neutrophils % 79.6 %
[2018-05-28] MEDS: Pantoprazole 40 MG VIAL IVP SCH (08:26)
[2018-05-28 08:46] LABS: BUN/Creatinine Ratio 17 (6-26); Blood Urea Nitrogen 8 mg/dL (8-23); Calcium 9.2 mg/dL (8.6-10.3); Carbon Dioxide 26 mEq/L (23-29); Chloride 103 mEq/L (98-107); Glucose 107 mg/dL (70-105); Osmolality,Calculated 285 (280-300); Sodium 138 mEq/L (136-145); eGFR For Non-African Americans > 60 (> 60)
[2018-05-28 09:00] LABS: INR 1.3; Prothrombin Time 14.6 Seconds (9.4-12.1)
[2018-05-28] MEDS: *HR* Heparin 5,000 UNIT/ML VIAL SQ SCH ×2 (09:37→19:50)
[2018-05-28] MEDS ORDERED: *HR* FentaNYL (PF) 100 MCG/2 ML VIAL IVP ONE (11:34)
[2018-05-28] MEDS ORDERED: *HR* Midazolam HCl 2 MG/2 ML VIAL IVP ONE (11:34)
[2018-05-28] MEDS ORDERED: *HR* FentaNYL (PF) 100 MCG/2 ML VIAL ONE (11:54)
[2018-05-28] MEDS ORDERED: *HR* Midazolam HCl 2 MG/2 ML VIAL ONE (11:54)
--- NOTE | 2018-05-28 12:40 | General Surgery Progress Note ---
<[place]ia [place] Sanjeev - Last Filed: 05/28/18 12:43> Date of Encounter: 05/28/18 Time of Encounter: 07:00 - Assessment and Plan (1) Abdominal wall cellulitis Current Visit: Yes Status: Acute WBC is downtrending. Patient states area is more painful and is grown outside margins. We will consult interventional radiology for a sterile aspirate. Cultures placed. Further recommendations pending. Continue discomfort management and supportive care continue IV antibiotics. Cultures and Gram stain pending. Continue G.I. and DVT prophylaxis out of bed to chair at least 3 times daily and ambulate and halls TID regular diet after procedure repeat a.m. labs (2) Seroma after procedure Current Visit: Yes Status: Acute See assessment and plan above (3) Abdominal pain Current Visit: Yes Status: Acute See assessment and plan above Qualifiers: Abdominal location: unspecified location Qualified Code(s): R10.9 - Unspecified abdominal pain Subjective Patient reports: still having pain, voiding w/o difficulty, flatus, bowel movement, afebrile, other ("Area on belly is bigger.") Objective Vital Signs - Last 8 Hours Temp Pulse Resp BP Pulse Ox 05/28/18 12:06 87 20 130/81 98 05/28/18 11:50 88 25 127/88 05/28/18 10:27 98.5 F 75 16 117/75 94 05/28/18 08:30 95 05/28/18 07:13 97.9 F 74 14 110/74 95 Intake and Output 05/27/18 05/28/18 05/28/18 23:59 07:59 15:59 Intake Total 430 / 430 580 / 580 430 / 430 Output Total 450 / 450 800 / 800 0 / 0 Balance -20 / -20 -220 / -220 430 / 430 Intake: IV Fluids 430 / 430 580 / 580 0.9 % Sodium Chloride 1,000 ML 430 / 430 376 / 376 @ 75 mls/hr IVC .[id number] [facility] Rx #:[id number] Ancef 1,000 MG In Water for inj . (sterile) 10 ML @ 200 mls/hr IVP Q8HR [facility] Rx#:[id number] Oral 0 / 0 0 / 0 420 / 420 Output: Urine 450 / 450 800 / 800 0 / 0 Other: Meal Dinner Breakfast Percent of Meal Consumed 0% 100% # Voids 1 Weight 81.2 kg Patient Weight 05/28/18 23:59 Weight 81.2 kg - General physical appearance well nourished, no distress, moderate pain - ENT atraumatic, normocephalic - Neck Neck exam: trachea midline - Respiratory normal expansion, normal respiratory effort, clear to auscultation - Cardiovascular Cardiovascular exam: Present: RRR - Abdomen Abdomen: Present: bowel sounds present, soft, tender, wound (Area in the left mid abdomen has increased outside the margin drawn. There is no drainage noted. ) Hernia: none - Integumentary no rash - Neurologic CN 2-12 grossly intact, normal coordination, normal sensation - Musculoskeletal normal gait, normal posture - Psychiatric oriented to time, oriented to person, oriented to place, speech is normal, memory intact - Labs 05/28/18 07:02 05/28/18 07:02 Diabetes panel 05/28/18 Range/Units 07:02 Sodium 138 (136-145) mEq/L Potassium 4.0 (3.5-5.1) mEq/L Chloride 103 (98-107) mEq/L Carbon Dioxide 26 (23-29) mEq/L BUN 8 (8-23) mg/dL Creatinine 0.46 L (0.60-1.20) mg/dL Glucose 107 H (70-105) mg/dL Calcium 9.2 (8.6-10.3) mg/dL Calcium panel 05/28/18 Range/Units 07:02 Calcium 9.2 (8.6-10.3) mg/dL Pituitary panel 05/28/18 Range/Units 07:02 Sodium 138 (136-145) mEq/L Potassium 4.0 (3.5-5.1) mEq/L Chloride 103 (98-107) mEq/L Carbon Dioxide 26 (23-29) mEq/L BUN 8 (8-23) mg/dL Creatinine 0.46 L (0.60-1.20) mg/dL Glucose 107 H (70-105) mg/dL Calcium 9.2 (8.6-10.3) mg/dL Adrenal panel 05/28/18 Range/Units 07:02 Sodium 138 (136-145) mEq/L Potassium 4.0 (3.5-5.1) mEq/L Chloride 103 (98-107) mEq/L Carbon Dioxide 26 (23-29) mEq/L BUN 8 (8-23) mg/dL Creatinine 0.46 L (0.60-1.20) mg/dL Glucose 107 H (70-105) mg/dL Calcium 9.2 (8.6-10.3) mg/dL - VTE Documentation of Mechanical Device: Graduated compression elastic hosiery Consult Discharge Plan - Plan Referrals: Zeinab Mcgee [Primary Care Provider] - <Griffin Lane - Last Filed: 05/29/18 09:53> Date of Encounter: 05/28/18 Objective Vital Signs - Last 8 Hours Temp Pulse Resp BP Pulse Ox 05/29/18 07:59 98.2 F 82 15 116/55 96 05/29/18 05:11 97.9 F 79 16 119/81 95 Intake and Output 05/28/18 05/29/18 05/29/18 23:59 07:59 15:59 Intake Total 250 / 250 250 / 250 120 / 120 Output Total 50 / 50 680 / 680 Balance 200 / 200 -430 / -430 120 / 120 Intake: IV Fluids Ancef 1,000 MG In Water for inj . (sterile) 10 ML @ 200 mls/hr IVP Q8HR [facility] Rx#:[id number] Oral 240 / 240 240 / 240 120 / 120 Output: Urine 600 / 600 Wound Drainage 50 / 50 80 / 80 Upper Abdomen 50 / 50 80 / 80 Other: Meal Dinner Breakfast Percent of Meal Consumed 50% 0% # Voids 1 Weight 78.199 kg Patient Weight 05/29/18 23:59 Weight 78.199 kg - Labs 05/29/18 04:41 05/29/18 04:41 Diabetes panel 05/29/18 Range/Units 04:41 Sodium 138 (136-145) mEq/L Potassium 3.9 (3.5-5.1) mEq/L Chloride 100 (98-107) mEq/L Carbon Dioxide 27 (23-29) mEq/L BUN 8 (8-23) mg/dL Creatinine 0.54 L (0.60-1.20) mg/dL Glucose 117 H (70-105) mg/dL Calcium 9.2 (8.6-10.3) mg/dL Calcium panel 05/29/18 Range/Units 04:41 Calcium 9.2 (8.6-10.3) mg/dL Pituitary panel 05/29/18 Range/Units 04:41 Sodium 138 (136-145) mEq/L Potassium 3.9 (3.5-5.1) mEq/L Chloride 100 (98-107) mEq/L Carbon Dioxide 27 (23-29) mEq/L BUN 8 (8-23) mg/dL Creatinine 0.54 L (0.60-1.20) mg/dL Glucose 117 H (70-105) mg/dL Calcium 9.2 (8.6-10.3) mg/dL Adrenal panel 05/29/18 Range/Units 04:41 Sodium 138 (136-145) mEq/L Potassium 3.9 (3.5-5.1) mEq/L Chloride 100 (98-107) mEq/L Carbon Dioxide 27 (23-29) mEq/L BUN 8 (8-23) mg/dL Creatinine 0.54 L (0.60-1.20) mg/dL Glucose 117 H (70-105) mg/dL Calcium 9.2 (8.6-10.3) mg/dL - Attending Attestation I examined this patient and my medical decision-making was reviewed with the Resident Physician. I agree with the documented findings, disposition and treatment plan as described except to the extent set forth below. The patient is seen and evaluated on morning rounds. The area of erythema is larger. I am concerned that this is either abscess formation or necrotic tissue that is sterile. To address this, I have recommended interventional radiology perform aspiration drainage along with culture of the contents. This will be done later today. Griffin Lane MD FACS
[2018-05-28] MEDS: Ibuprofen 600 MG TABLET PO PRN (13:15)
[2018-05-29] MEDS: ceFAZolin 1,000 MG in Water for inj. (sterile) 20 ML 10 ML IVP SCH ×4 (00:16→23:49)
[2018-05-29 05:07] LABS: Basophils # 0.1 K/mcL (0.0-0.2); Basophils % 0.6 %; Eosinophils # 0.5 K/mcL (0.0-0.6); Eosinophils % 3.6 %; Hematocrit 32.9 % (35.3-44.9); Immature Granulocytes % 0.7 % (0-4); Lymphocytes # 2.2 K/mcL (0.6-4.6); Lymphocytes % 17.6 %; Mean Corpuscular HGB Conc 33.4 g/dL (31.6-35.5); Mean Corpuscular Hemoglobin 30.2 pg (28.0-33.3); Mean Corpuscular Volume 90.4 fL (83.0-100.0); Mean Platelet Volume 9.9 fL (9.4-12.4); Monocytes # 0.9 K/mcL (0.0-1.3); Monocytes % 6.7 %; Platelet Count 564 K/mcL (140-400); Red Blood Count 3.64 M/mcL (3.82-4.97); Red Cell Distribution Width 13.3 % (11.5-14.5); Segmented Neutrophils % 70.8 %
[2018-05-29 05:24] LABS: BUN/Creatinine Ratio 15 (6-26); Blood Urea Nitrogen 8 mg/dL (8-23); Calcium 9.2 mg/dL (8.6-10.3); Carbon Dioxide 27 mEq/L (23-29); Chloride 100 mEq/L (98-107); Glucose 117 mg/dL (70-105); Osmolality,Calculated 285 (280-300); Potassium 3.9 mEq/L (3.5-5.1); Sodium 138 mEq/L (136-145); eGFR For Non-African Americans > 60 (> 60)
[2018-05-29] MEDS: *HR* Heparin 5,000 UNIT/ML VIAL SQ SCH ×2 (05:52→17:55)
--- NOTE | 2018-05-29 09:19 | General Surgery Progress Note ---
<Jaskaran Shetty - Last Filed: 05/29/18 09:22> Date of Encounter: 05/29/18 Time of Encounter: 09:17 - Assessment and Plan (1) Abdominal wall cellulitis Current Visit: Yes Status: Acute Ms. Addison is a 62 year old female presented with swelling of abdomen accompanied with pain, redness, and warmth. She had a robotic hernia repair [address] Renae. There is decreased swelling, redness, and pain. WBC has improved at 12.6 decreased from 15.8 yesterday. Yesterday IR consulted for drainage, awaiting cultures for antibiotic coverage. We will continue current measures until her swelling and redness have completely subsided. - Continue ABX regimen - Ancef - Continue Zofran PRN for nausea - continue pain meds - Oxy PRN - Continue IVF and regular diet - DVT ppx started - Heparin + anti-embolic stockings Subjective Patient reports: feels better, pain is less, flatus, bowel movement Narrative: Patient reports feeling much better today. Pain, swelling, and redness of abdominal swelling have improved post drainage. Her WBC count is decreased to 12.6 from 15.8. Patient is passing gas, having bowel movements, tolerating full diet. Objective Vital Signs - Last 8 Hours Temp Pulse Resp BP Pulse Ox 05/29/18 07:59 98.2 F 82 15 116/55 96 05/29/18 05:11 97.9 F 79 16 119/81 95 Intake and Output 05/28/18 05/29/18 05/29/18 23:59 07:59 15:59 Intake Total 250 / 250 250 / 250 120 / 120 Output Total 50 / 50 680 / 680 Balance 200 / 200 -430 / -430 120 / 120 Intake: IV Fluids 10 Ancef 1,000 MG In Water for inj . (sterile) 10 ML @ 200 mls/hr IVP Q8HR [facility] Rx#:[id number] Oral 240 / 240 240 / 240 120 / 120 Output: Urine 600 / 600 Wound Drainage 50 / 50 80 / 80 Upper Abdomen 50 / 50 80 / 80 Other: Meal Dinner Breakfast Percent of Meal Consumed 50% 0% # Voids 1 Weight 78.199 kg Patient Weight 05/29/18 23:59 Weight 78.199 kg - General physical appearance well developed, well nourished, no distress - Respiratory normal expansion, normal respiratory effort - Cardiovascular Cardiovascular exam: Present: RRR, no murmurs/rubs/gallops - Abdomen Abdomen: Present: bowel sounds present, soft, non tender - Incision Incision: Present: clean and dry, intact - Neurologic CN 2-12 grossly intact - Psychiatric oriented to time, oriented to person, oriented to place, speech is normal, memory intact - Labs 05/29/18 04:41 05/29/18 04:41 Diabetes panel 05/29/18 Range/Units 04:41 Sodium 138 (136-145) mEq/L Potassium 3.9 (3.5-5.1) mEq/L Chloride 100 (98-107) mEq/L Carbon Dioxide 27 (23-29) mEq/L BUN 8 (8-23) mg/dL Creatinine 0.54 L (0.60-1.20) mg/dL Glucose 117 H (70-105) mg/dL Calcium 9.2 (8.6-10.3) mg/dL Calcium panel 05/29/18 Range/Units 04:41 Calcium 9.2 (8.6-10.3) mg/dL Pituitary panel 05/29/18 Range/Units 04:41 Sodium 138 (136-145) mEq/L Potassium 3.9 (3.5-5.1) mEq/L Chloride 100 (98-107) mEq/L Carbon Dioxide 27 (23-29) mEq/L BUN 8 (8-23) mg/dL Creatinine 0.54 L (0.60-1.20) mg/dL Glucose 117 H (70-105) mg/dL Calcium 9.2 (8.6-10.3) mg/dL Adrenal panel 05/29/18 Range/Units 04:41 Sodium 138 (136-145) mEq/L Potassium 3.9 (3.5-5.1) mEq/L Chloride 100 (98-107) mEq/L Carbon Dioxide 27 (23-29) mEq/L BUN 8 (8-23) mg/dL Creatinine 0.54 L (0.60-1.20) mg/dL Glucose 117 H (70-105) mg/dL Calcium 9.2 (8.6-10.3) mg/dL - VTE Documentation of Mechanical Device: Graduated compression elastic hosiery Consult Discharge Plan - Plan Referrals: Zeinab Mcgee [Primary Care Provider] - <DomingoGriffin T - Last Filed: 05/29/18 10:07> Date of Encounter: 05/29/18 Objective Vital Signs - Last 8 Hours Temp Pulse Resp BP Pulse Ox 05/29/18 07:59 98.2 F 82 15 116/55 96 05/29/18 05:11 97.9 F 79 16 119/81 95 Intake and Output 05/28/18 05/29/18 05/29/18 23:59 07:59 15:59 Intake Total 250 / 250 250 / 250 120 / 120 Output Total 50 / 50 680 / 680 Balance 200 / 200 -430 / -430 120 / 120 Intake: IV Fluids Ancef 1,000 MG In Water for inj . (sterile) 10 ML @ 200 mls/hr IVP Q8HR [facility] Rx#:[id number] Oral 240 / 240 240 / 240 120 / 120 Output: Urine 600 / 600 Wound Drainage 50 / 50 80 / 80 Upper Abdomen 50 / 50 80 / 80 Other: Meal Dinner Breakfast Percent of Meal Consumed 50% 0% # Voids 1 Weight 78.199 kg Patient Weight 05/29/18 23:59 Weight 78.199 kg - Labs 05/29/18 04:41 05/29/18 04:41 Diabetes panel 05/29/18 Range/Units 04:41 Sodium 138 (136-145) mEq/L Potassium 3.9 (3.5-5.1) mEq/L Chloride 100 (98-107) mEq/L Carbon Dioxide 27 (23-29) mEq/L BUN 8 (8-23) mg/dL Creatinine 0.54 L (0.60-1.20) mg/dL Glucose 117 H (70-105) mg/dL Calcium 9.2 (8.6-10.3) mg/dL Calcium panel 05/29/18 Range/Units 04:41 Calcium 9.2 (8.6-10.3) mg/dL Pituitary panel 05/29/18 Range/Units 04:41 Sodium 138 (136-145) mEq/L Potassium 3.9 (3.5-5.1) mEq/L Chloride 100 (98-107) mEq/L Carbon Dioxide 27 (23-29) mEq/L BUN 8 (8-23) mg/dL Creatinine 0.54 L (0.60-1.20) mg/dL Glucose 117 H (70-105) mg/dL Calcium 9.2 (8.6-10.3) mg/dL Adrenal panel 05/29/18 Range/Units 04:41 Sodium 138 (136-145) mEq/L Potassium 3.9 (3.5-5.1) mEq/L Chloride 100 (98-107) mEq/L Carbon Dioxide 27 (23-29) mEq/L BUN 8 (8-23) mg/dL Creatinine 0.54 L (0.60-1.20) mg/dL Glucose 117 H (70-105) mg/dL Calcium 9.2 (8.6-10.3) mg/dL - Attending Attestation I examined this patient and my medical decision-making was reviewed with the Resident Physician. I agree with the documented findings, disposition and treatment plan as described except to the extent set forth below. The patient is seen and evaluated on morning rounds with resident. The patient has a drain in place which was placed by interventional radiology. The fluid was sent for microbiology culture and analysis. There were many white blood cells in the specimen. This still may be from necrotic omentum after dissection , or, this may represent a superficial abscess. Await cultures. Continue drainage. Griffin Lane MD FACS
[2018-05-29] MEDS: Pantoprazole 40 MG VIAL IVP SCH (09:43)
--- NOTE | 2018-05-29 10:24 | Event Note ---
<Jaskaran Shetty - Last Filed: 05/29/18 10:25> Date of Encounter: 05/29/18 Time of Encounter: 10:21 Surgical assessment of patient: abdominal wall cellulitis secondary to surgical complication - contaminated mesh <Griffin Lane - Last Filed: 05/30/18 21:50> Date of Encounter: 05/29/18 abdominal wall cellulitis secondary to robotic hernia repair. mesh status undetermined Griffin Lane MD FACS
[2018-05-30] MEDS: Ibuprofen 600 MG TABLET PO PRN (01:46)
[2018-05-30] MEDS: *HR* Heparin 5,000 UNIT/ML VIAL SQ SCH (05:37)
[2018-05-30 07:24] LABS: Basophils # 0.1 K/mcL (0.0-0.2); Basophils % 0.7 %; Eosinophils # 0.5 K/mcL (0.0-0.6); Eosinophils % 4.4 %; Hematocrit 34.2 % (35.3-44.9); Hemoglobin 11.4 g/dL (11.5-15.4); Lymphocytes # 2.4 K/mcL (0.6-4.6); Lymphocytes % 22.3 %; Mean Corpuscular HGB Conc 33.3 g/dL (31.6-35.5); Mean Corpuscular Hemoglobin 30.3 pg (28.0-33.3); Mean Platelet Volume 9.6 fL (9.4-12.4); Monocytes # 0.7 K/mcL (0.0-1.3); Monocytes % 6.9 %; Platelet Count 580 K/mcL (140-400); Red Blood Count 3.76 M/mcL (3.82-4.97); Red Cell Distribution Width 13.4 % (11.5-14.5); Segmented Neutrophils % 64.7 %
[2018-05-30 08:07] VITALS: BP 108/74
[2018-05-30] MEDS ORDERED: MetroNIDAZOLE 500 MG/100 ML 500 MG/100 ML BAG IVPB ONE (08:50)
[2018-05-30] MEDS: ceFAZolin 1,000 MG in Water for inj. (sterile) 20 ML 10 ML IVP SCH (08:52)
[2018-05-30] MEDS: Pantoprazole 40 MG VIAL IVP SCH (08:58)
--- NOTE | 2018-05-30 09:22 | Discharge Summary ---
<Malia Beach - Last Filed: 05/30/18 09:19> Orders not resulted at time of discharge: Pending orders 05/28/18 12:05 Culture,Anaerobic [RM] Stat Culture,Wound [RM] Stat Fungal Culture [MYC] Stat Date of Encounter: 05/30/18 Time of Encounter: 07:30 - Discharge Diagnosis (1) Abdominal wall cellulitis Priority: Primary Status: Acute (2) Seroma after procedure Priority: Primary Status: Acute (3) Abdominal pain Priority: Primary Status: Acute Qualifiers: Abdominal location: unspecified location Qualified Code(s): R10.9 - Unspecified abdominal pain General Surgery Exam Initial Vital Signs Temp Pulse Resp BP Pulse Ox 97.5 F L 94 16 129/80 96 05/25/18 16:59 05/25/18 16:59 05/25/18 16:59 05/25/18 16:59 05/25/18 16:59 Vital Signs Temp Pulse Resp BP Pulse Ox 05/30/18 08:02 97.5 F L 71 16 108/74 96 05/30/18 04:09 97.9 F 70 16 129/78 94 05/29/18 22:56 98.1 F 72 15 106/60 96 05/29/18 20:17 95 05/29/18 19:13 98.6 F 90 15 113/72 95 05/29/18 15:57 97.9 F 62 14 119/75 94 05/29/18 11:13 98.2 F 82 16 113/66 96 Intake and Output 05/29/18 05/30/18 05/30/18 23:59 07:59 15:59 Intake Total 140 / 140 0 / 0 0 / 0 Output Total 140 / 140 300 / 300 520 / 520 Balance 0 / 0 -300 / -300 -520 / -520 Intake: IV Fluids 20 / 20 Ancef 1,000 MG In Water for inj 20 / 20 . (sterile) 10 ML @ 200 mls/hr IVP Q8HR [facility] Rx#:[id number] Oral 120 / 120 0 / 0 0 / 0 Output: Urine 100 / 100 300 / 300 500 / 500 Wound Drainage 40 / 40 0 / 0 20 / 20 Upper Abdomen 40 / 40 0 / 0 20 / 20 Other: Stool Size Large Stool Consistency formed Stool Color Brown # Bowel Movements 1 Weight 81 kg Patient Weight 05/30/18 23:59 Weight 81 kg VITAL SIGNS: Reviewed. See [facility] GENERAL: In no apparent distress. HEENT: Normocephalic, atraumatic, pupils are equal and reactive, extraocular motions intact, oropharynx is pink and moist, there is no neck adenopathy or JVD noted. CHEST/RESPIRATORY: The thorax is free from signs of trauma. Lung sounds: clear to auscultation, normal respiratory effort CARDIAC: Regular rate and rhythm. Normal S1 and S2, without murmurs, gallops, or rubs. VASCULAR: No Edema. 2+ peripheral pulses. ABDOMEN: soft, expected tenderness, erythema in the left abd wall is improving , her drain is patent and with notable thick, brown/red drainage INCISION: Surgical incision is clean, dry, and intact. There are no signs of cellulitis or infection noted. WOUNDS/DRAINS: 12 Belgian cath, ISIDRA suction drainage MUSCULOSKELETAL: Good range of motion of all major joints. Extremities without clubbing, cyanosis or edema. NEUROLOGIC EXAM: Alert and oriented x 3. Speech normal. Follows commands. PSYCHIATRIC: Mood normal. SKIN: No rash or lesions. - Hospital Course Hospital course: Ms. Addison is a 62 year old female who presented on 05/25/2018 with complaints of abdominal pain and fever of 102 Fahrenheit oral. She underwent a robotic incisional hernia repair with a 9 cm Symbotex Mesh on 05/10/[address] Renae, was seen in follow-up by Dr. Renae on 05/23/2018 and was noted to be doing well. 05/25/2018, she presented to the emergency department with complaints of pain, redness, and warmth on the abdomen and fever as described. She denied nausea, vomiting, constipation or diarrhea. He CT of the abdomen and pelvis was completed which noted a well circumcised intra-abdominal fluid collection measuring 4.4 x 8.2 x 7.2 cm that extended into the left hepatic lobe, and a circumcised fluid collection containing law kills of gas along the subcutaneous fat in the anterior abdominal wall superficial to the collection. She was treated with IV antibiotics and her white blood cell count improved. The erythema on the abdominal wall decreased and she was observed for aprox 48 hours. On 05/28/2018, interventional radiology was asked to place a CT guided aspirate for culture versus drain placement. IR was successful in placing a drain and reported 55 mL of purulent material retrieved. Final cultures are pending; however prelimary cultures are consistent with gram-negative rods. She has been afebrile for over 24 hours, vital signs are stable, abdominal discomfort is resolved, and she is comfortable caring for her drain. We will begin discharge planning to home with a follow-up with Dr. Renae on Sunday. - Time Spent with Patient Total time spent providing and/or coordinating discharge services: - Discharge Medications Prescriptions: Ciprofloxacin [Cipro] 500 mg PO BID 14 Days #28 tablet metroNIDAZOLE [Flagyl] 500 mg PO TID 14 Days #42 tablet Home Medications: Acetaminophen [Tylenol] 650 mg PO DAILY PRN 05/26/18 [History] Albuterol Sulfate [Ventolin Hfa] 1 - 2 puff IH DAILY PRN 05/26/18 [History] L.acidoph,Paracasei, B.lactis [Probiotic] 1 cap PO DAILY 05/26/18 [History] Naproxen Sodium [Aleve] 220 mg PO DAILY PRN 05/26/18 [History] Vitamin B Complex [B Complex] 1 cap PO DAILY 05/26/18 [History] Ciprofloxacin [Cipro] 500 mg PO BID 14 Days #28 tablet 05/30/18 [Rx] metroNIDAZOLE [Flagyl] 500 mg PO TID 14 Days #42 tablet 05/30/18 [Rx] Allergies/Adverse Reactions: 3 Allergy/AdvReac Type Severity Reaction Status Date / Time No Known Allergies Allergy Verified 05/26/18 13:29 Date of admission: 05/25/18 20:52 Primary care physician: Zeinab Mcgee Consults: 05/28/18 07:02 Consult to Interventional Radiology [CONS] Stat Consulting Provider: Radiology Interventional Cols Reason for Consult: Possible Sterile aspiration for culture and/or drain placement if indicated of abdominal wall cellulitis/abscess; please call malia when IR arrives today. Time Notified: 07:03 Call Completed: No Discharging clinician: Yong Almeida) Anticipated date of discharge: 05/30/18 Labs on day of discharge: Labs from last 24 hours 05/30/18 07:08 WBC 10.7 RBC 3.76 L Hgb 11.4 L Hct 34.2 L MCV 91.0 MCH 30.3 MCHC 33.3 RDW 13.4 Plt Count 580 H MPV 9.6 Immature Gran % 1.0 Seg Neutrophils % 64.7 Lymphocytes % 22.3 Monocytes % 6.9 Eosinophils % 4.4 Basophils % 0.7 Neutrophils # 7.0 Lymphocytes # 2.4 Monocytes # 0.7 Eosinophils # 0.5 Basophils # 0.1 Preliminary micro results at discharge 05/28/18 12:05 Wound Culture - Preliminary Abdomen Gram Negative Jd - Impressions ITS Impressions Needle Aspiration CT 05/28/18 00:00 IMPRESSION: Successful CT guided placement of abdominal wall abscess drainage catheter. It is uncertain whether the deep abscess collection communicates with the superficial collection. Follow-up CT scan once drainage decreases to less than 10 mL per day is recommended for further evaluation of the deep abscess collection D/ / Calvin Zamora MD / Calvin Zamora MD Interpreting Provider: Calvin Zamora MD - Patient Status Disposition: Home, Self-Care Condition: Good Functional capacity at discharge: independent ambulation Overall status at discharge: patient is progressing back to baseline - Discharge Instructions Instructions: Cr-Cardoso Drain Care (DC), Ventral Hernia (DC) Follow Up With: Keaton Renae DO [Partnered Physician] - 06/04/18 10:25 am Additional Instructions: General Surgical Discharge Instructions 1. No pushing, pulling, or lifting greater than 15 lbs for 2-4 weeks (depending upon procedure). 2. You may shower beginning today, but no tub baths, soaking, or swimming for 2 weeks. 3. You may resume driving when you are off narcotics and are safe to react in a car. 4. Take ibuprofen every 8 hours for discomfort. If this does not relieve discomfort, you may take Tylenol. 5. Take stool softeners (Colace) or a water based laxative (Miralax) IF/while taking narcotics. You may hold for loose stools. 6. Report any fevers greater than 100.5F, increase abdominal discomfort, drainage that looks like pus, increased redness or pain at the surgical site, or any vomiting. 7. Report any pain in the calves, shortness of breath, or rapid heartbeat. 8. Follow-up in the office as directed. 9. If you were prescribed antibiotics, do not stop them without talking to your provider. Do not drink alcohol while taking metronidazole. Doing so will likely cause severe abdominal discomfort and violent vomiting. Daily ISIDRA Drain Care: 1. Remove dressings. Shower with antibacterial soap. 2. Do not let the ISIDRA drain dangle from your body. Use the safety pin to secure to your clothing. Secure the ISIDRA to a lanyard or other type of long necklace when you shower. 3. Replace drain gauze and taped to secure. 4. Record the output from your ISIDRA bulb (at least once daily) on the form provided and bring this with you to your follow-up appointment. 5. Keep the ISIDRA drain to suction (sqeeze the bulb and replace the cap while squeezing). 6. You may turn stopcock towards you to strip the line to the bulb, but always leave it in the patent position. - Diet and Activity Activity: increase activity as tolerated Diet: advance to your usual diet <Griffin Lane - Last Filed: 05/30/18 21:56> Orders not resulted at time of discharge: Pending orders 05/28/18 12:05 Culture,Anaerobic [RM] Stat Fungal Culture [MYC] Stat Date of Encounter: 05/30/18 General Surgery Exam Initial Vital Signs Temp Pulse Resp BP Pulse Ox 97.5 F L 94 16 129/80 96 05/25/18 16:59 05/25/18 16:59 05/25/18 16:59 05/25/18 16:59 05/25/18 16:59 - Hospital Course Hospital course: Ms. Addison is a 62 year old female - Time Spent with Patient Total time spent providing and/or coordinating discharge services: Date of admission: 05/25/18 20:52 Primary care physician: Zeinab Mcgee Consults: 05/28/18 07:02 Consult to Interventional Radiology [CONS] Stat Consulting Provider: Radiology Interventional Cols Reason for Consult: Possible Sterile aspiration for culture and/or drain placement if indicated of abdominal wall cellulitis/abscess; please call malia when IR arrives today. Time Notified: 07:03 Call Completed: No Labs on day of discharge: Labs from last 24 hours 05/30/18 07:08 WBC 10.7 RBC 3.76 L Hgb 11.4 L Hct 34.2 L MCV 91.0 MCH 30.3 MCHC 33.3 RDW 13.4 Plt Count 580 H MPV 9.6 Immature Gran % 1.0 Seg Neutrophils % 64.7 Lymphocytes % 22.3 Monocytes % 6.9 Eosinophils % 4.4 Basophils % 0.7 Neutrophils # 7.0 Lymphocytes # 2.4 Monocytes # 0.7 Eosinophils # 0.5 Basophils # 0.1 - Impressions ITS Impressions Needle Aspiration CT 05/28/18 00:00 IMPRESSION: Successful CT guided placement of abdominal wall abscess drainage catheter. It is uncertain whether the deep abscess collection communicates with the superficial collection. Follow-up CT scan once drainage decreases to less than 10 mL per day is recommended for further evaluation of the deep abscess collection D/ / Calvin Zamora MD / Calvin Zamora MD Interpreting Provider: Calvin Zamora MD - Attending Attestation I examined this patient and my medical decision-making was reviewed with the Resident Physician. I agree with the documented findings, disposition and treatment plan as described except to the extent set forth below. The patient was seen and evaluated with rest and on morning rounds. She had gram-negative rods in the aspirated fluid from the subcutaneous tissue. This is treated with ciprofloxacin. She will have the drain maintain for discharge. She is to see Dr. Renae Sunday Griffin Lane MD FACS
== END 2018-05-30 10:51 | disposition home or self-care (01) ==
LOC: EMEROO 16:52 → 3ANU 16:52
PROVIDERS: ADMIT Surgery; ATTEND Surgery
PROC: IRFLUID (2018-05-28 13:00)